=== PATIENT | female | born 1965 | race Caucasian/White ===

== ENCOUNTER → 2020-12-12 | Outpatient (CLI) | payer OTHER ==
[~2020-12-12] MED LIST: ALBUTEROL2.5 MG/3 M INH; DILTIAZEM ER360 M1 PO; LISINOPRIL40 MG PO; VENTOLIN HFA 66.7 GM INH
[2020-12-12 11:36] LABS: HEMOGLOBIN 16.4 gm/dl (12.3-15.3); RED BLOOD COUNT 5.04 M/UL (4.00-5.10)
[2020-12-12 11:51] LABS: BUN/CREATININE RATIO 19 (0-10)
== END ==
LOC: OPSV2 10:00
PROVIDERS: Orthopaedic Surgery
DX: Z01.818 Encounter for other preprocedural examination (principal); M65.311 Trigger thumb, right thumb
CPT/HCPCS: 36415; 71046; 80048; 85027; 93005

== ENCOUNTER → 2020-12-14 | Day surgery (SDC) | payer OTHER ==
[~2020-12-14] VITALS: Ht 160 cm; Wt 67.1 kg
== END | disposition home or self-care (01) ==
LOC: OR 06:04
PROVIDERS: Orthopaedic Surgery
PROC: 0LN70ZZ Release Right Hand Tendon, Open Approach (ICD-10-PCS; principal; 2020-12-14 07:45)
DX: M65.311 Trigger thumb, right thumb (principal); I10 Essential (primary) hypertension; N28.89 Other specified disorders of kidney and ureter; J44.9 Chronic obstructive pulmonary disease, unspecified; K21.9 Gastro-esophageal reflux disease without esophagitis; M79.7 Fibromyalgia; M19.90 Unspecified osteoarthritis, unspecified site; F17.210 Nicotine dependence, cigarettes, uncomplicated; Z79.899 Other long term (current) drug therapy
CPT/HCPCS: J0690; J1100; J2001; J2250; J2405; J2704; J2765; J3010; J7120